=== PATIENT | male | born 1950 | race Caucasian/White ===

== ENCOUNTER 2016-07-17 17:03 | Emergency (ER) | payer MEDICARE, OTHER ==
[~2016-07-17] VITALS: Ht 170.2 cm; Wt 65.0 kg
[~2016-07-17 17:03] MED LIST: ALBU0.63 NEB; ALBU2.5V4 IH; ALPR0.5T11 PO; ALPR0.5T5 PO; ANTIDEPRESSANT; ASPI-860 PO; ATOR80TA PO; BUME1TAB4 PO; CEPH-507 PO; CETI-262 PO; CITA40TA5 PO; CLOP75TA3 PO; CYCL-265 PO; DGX.125T PO; DIAZ5TAB3 PO; DULO60CA7 PO; FENT1PAT9 TOP; FNST5T PO; GABAPENTIN PO; HYDR-3881 PO; INDO50CA PO; ISOS30TA41 PO; LACT10SO46 PO; LISI5TAB14 PO; METH750T3 PO; MIDO2.5T PO; NITR0.4T7 SL; ONDA4TAB11 PO; ONDN4T PO; OXYC1TAB7 PO; OXYC7.5T; PRD10T GT; SIMVASTATIN; SPIR25TA PO; SRTR100T PO; TAMS-8 PO; VARE1TAB21 PO
--- OUTSIDE RECORDS SUMMARY | 2016-07-17 17:07 | XMS REPORT | Summary of Care ---
Author Author Dae العلي, [facility] Unknown Address [address], [place] [id number] Phone Unavailable Care Team Providers Care Inventory Manager Name Role Phone Abbe Valladares M.D. Unavailable Unavailable Saroj Lazo M.D. Unavailable Unavailable Derrick Hurd PP Unavailable MaudDerrick RP Unavailable Unavailable Unavailable Functional Status Functional Status Health Issues Name Dates Details Functional status health issues are not documented Status: Cognitive Status Health Issues Name Dates Details Cognitive status health issues are not documented Status: Problems Name Dates Details Implantable Cardioverter-Defibrillator Status: Active Pulmonary infiltrates on CXR (793.19, R91.8) Status: Active Epistaxis (784.7, R04.0) Status: Active Pulmonary edema (514, J81.1) Status: Active Encounter for monitoring statin therapy (V58.83, Z51.81) Status: Active Pulmonary fibrosis (515, J84.10) Status: Active Coronary artery disease (414.00, I25.10) Status: Active Low back pain potentially associated with radiculopathy (724.2, M54.5) Status: Active Chronic combined systolic and diastolic congestive heart failure (428.42, I50.42) Status: Active Cardiac resynchronization therapy defibrillator (LIMEROCK TOWER LOADER-D) in place (V45.02, Z95.810) Status: Active Dyslipidemia (272.4, E78.5) Status: Active Hypertension (401.9, I10) Status: Active Hypotension (458.9, I95.9) Status: Active S/P CABG (coronary artery bypass graft) (V45.81, Z95.1) Status: Active Abdominal pain (789.00, R10.9) Status: Active Medications Name Dates Details Nitrostat 0.4 MG Sublingual Tablet Sublingual PLACE 1 TABLET UNDER THE TONGUE EVERY 5 MINUTES UP TO 3 DOSES NEEDED FOR CHEST PAIN. Quantity: 15 Refills: 0 Saroj Lazo M.D. Started 10-Dec-2012 ActiveLipitor 80 MG Oral Tablet TAKE 1/2 TABLET DAILY. Refills: 0 Started 14-Dec-2012 ActiveOxycodone-Acetaminophen 7.5-325 MG Oral Tablet TAKE 1 TABLET EVERY 4 TO 6 HOURS NEEDED FOR PAIN. Refills: 0 Started 10-May-2013 ActiveBumetanide 1 MG Oral Tablet TAKE 1 TABLET TWICE DAILY. Refills: 0 Abbe Valladares M.D. Started 28-Jun-2013 ActiveMiraLax Oral Powder MIX 1 CAPFUL IN 8 OUNCES OF WATER AND DRINK TWICE DIRECTED. Quantity: 1 Refills: 0 Started [id number] GM Bottle Benefiber Oral Powder Mix in one scoop in a drink twice a day. Quantity: 1 Refills: 0 Started [id number] GM Bottle Zofran 4 MG Oral Tablet Take one tablet every 4-6 hours as needed for nausea and vomiting Quantity: 10 Refills: 0 Started ActiveAmitriptyline HCl - 25 MG Oral Tablet TAKE 2 TABLETS AT BEDTIME. Refills: 0 Started 05-Sep-2014 ActiveSertraline HCl - 100 MG Oral Tablet TAKE 1 TABLET DAILY DIRECTED. Refills: 0 Started 05-Sep-2014 ActiveOmeprazole Magnesium 20.6 (20 Base) MG Oral Capsule Delayed Release Take one tablet daily Refills: 0 Started 05-Sep-2014 ActiveDULoxetine HCl - 60 MG Oral Capsule Delayed Release Particles TAKE 1 CAPSULE DAILY. Refills: 0 Started 05-Sep-2014 ActiveMidodrine HCl - 10 MG Oral Tablet TAKE 1 TABLET 3 TIMES DAILY. Quantity: 90 Refills: 11 Abbe Valladares M.D. Started 05-Sep-2014 Active Allergies and Adverse Reactions Name Dates Details Streptokinases Status: Active Past Medical History Name Dates Details History of Acute Myocardial Infarction (V12.59) Status: Resolved History of acute respiratory failure (V12.69, Z87.09) Status: Resolved History of chronic bronchitis (V12.69, Z87.09) Status: Resolved History of Hypoxia (799.02, R09.02) Status: Resolved History of nicotine dependence (V15.82, Z87.891) Status: Resolved Procedures Procedure Dates Details History of Cath Stent Placement Completed:13-May-2010 History of Cath Stent Placement Completed:28-May-2010 History of Heart Catheterization - Left Completed:13-May-2010 History of Lower Back Surgery Implantable Cardioverter-Defibrillator History of Venous Ins Electr Vent Pacing At Time Of Insert Cardiovert Completed:29-Jan-2013 History of Cardioverter-defibrillator Pulse Generator Insertion With Leads Completed:29-Jan-2013 Procedures not documented Immunization Name Dates Details Immunizations not documented Family History Brother Name Dates Details Family history of Acute Myocardial Infarction (V17.3) Status: Active Social History Smoking StatusUnknown if ever smoked Vital Signs Date Test Result Details 24-Jun-2015 16:05 BP Systolic 91 mm[Hg] Status: BP Diastolic 62 mm[Hg] Status: Heart Rate 82 /min Status: Height 67 in Status: Weight 154 lb Status: O2 SAT 94 % Status: Body Mass Index Calculated 24.12 kg/m2 Status: Body Surface Area Calculated 1.81 m2 Status: Results Date Description Value Details Results not documented Plan of Care Planned Observations Name Dates Details Planned Goals not documented Goal Planned Encounters Appointment; Provider: Abbe Valladares On 02-Mar-2016 13:30 Appointment; Provider: Brett Tsai On 29-Jan-2013 08:30 Appointment; Provider: Saroj Lazo On 24-Nov-2012 09:00 Appointment; Provider: Timothy Zhang On 28-May-2010 10:00 Appointment; Provider: Timothy Zhang On 14-May-2010 11:15 Instructions Instructions not documented Encounters Appointment; Rio Pearl Encounter Diagnosis: Problem not documented On 24-Jun-2015 15:30 Appointment; Abbe Valladares Encounter Diagnosis: Problem not documented On 06-Mar-2015 11:15 Appointment; Abbe Valladares Encounter Diagnosis: Problem not documented On 05-Sep-2014 09:30 Appointment; Rosalio Adams Encounter Diagnosis: Problem not documented On 07-Aug-2014 14:15 Appointment; Abbe Valladares Encounter Diagnosis: Problem not documented On 07-Mar-2014 10:45 Appointment; Abbe Valladares Encounter Diagnosis: Problem not documented On 15:15 Appointment; Abbe Valladares Encounter Diagnosis: Problem not documented On 14:00 Appointment; Abbe Valladares Encounter Diagnosis: Problem not documented On 06-Sep-2013 09:45 Appointment; Rosalio Adams Encounter Diagnosis: Problem not documented On 08-Aug-2013 13:45 Appointment; Abbe Valladares Encounter Diagnosis: Problem not documented On 28-Jun-2013 09:30
[2016-07-17] MEDS ORDERED: AMIT25TA9 PO (17:34)
[2016-07-17] MEDS ORDERED: POLY17PO6 PO (17:36)
[2016-07-17] MEDS ORDERED: OMEP-114 PO (17:37)
[2016-07-17] MEDS ORDERED: DICY10CA12 PO (17:45)
[2016-07-17] MEDS ORDERED: CLOP75TA28 PO (17:45)
[2016-07-17] MEDS ORDERED: ATOR80TA PO (17:45)
[2016-07-17] MEDS ORDERED: OXYC1TAB8 PO (17:47)
[2016-07-17] MEDS ORDERED: HYOS0.3710 PO (17:47)
[2016-07-17] MEDS ORDERED: ZLP5T PO (17:50)
[2016-07-17] MEDS ORDERED: DNPZ10T PO (17:50)
[2016-07-17] MEDS ORDERED: SODIUM CHLORIDE FLUSH 3 ML SYR IV PRN (18:05)
[2016-07-17] MEDS ORDERED: ALBUTEROL/IPRATROPIUM 3MG-0.5MG/3ML (DUONEB) NEB VIAL INH ONE (18:05)
[2016-07-17] MEDS ORDERED: SODIUM CHLORIDE FLUSH 10 ML SYR IV PRN (18:05)
[2016-07-17 18:21] LABS: BASOPHILS % (AUTO) 1 % (0-2); EOSINOPHILS # (AUTO) 0.2 10^3uL; EOSINOPHILS % (AUTO) 4 % (0-4); LYMPHOCYTES # (AUTO) 2.1 X10^3; MEAN CORPUSCULAR HEMOGLOBIN 28.5 PG (26.0-34.0); MEAN CORPUSCULAR HGB CONC 32.4 g/dL (31.0-37.0); MEAN CORPUSCULAR VOLUME 88 FL (80-100); MEAN PLATELET VOLUME 11.4 FL (6.0-9.5); MONOCYTES # (AUTO) 0.6 X10^3; MONOCYTES % (AUTO) 10 % (3-11); NEUTROPHILS # (AUTO) 3.3 X10^3; NEUTROPHILS % (AUTO) 52 % (51-67); PLATELET COUNT 156 10^3uL (150-450); WHITE BLOOD COUNT 6.36 10^3uL (4.0-11.0)
[2016-07-17 18:33] LABS: ALBUMIN 3.3 g/dL (3.4-5.0); ANION GAP 15.3 MEQ/L (3-15); CALCULATED IONIZED CALCIUM 3.5 mg/dL (3.8-4.6); TOTAL PROTEIN 7.3 g/dL (6.4-8.5)
[2016-07-17] MEDS ORDERED: ONDANSETRON 2 MG/ML (Z0FRAN) 2 ML VIAL IV ONE (18:35)
[2016-07-17] MEDS ORDERED: BUMETANIDE 1 MG/4 ML IV ONE (18:50)
--- NOTE | 2016-07-17 18:58 | Diagnostic Imaging Report ---
INDICATION: Shortness of breath. Portable chest at 6:42 PM FINDINGS: There is a dual-chamber pacemaker. There are postop changes from CABG surgery. There is cardiomegaly with pulmonary vascular congestion and interstitial edema. IMPRESSION: Congestive heart failure with interstitial edema. Dictated by: Dictated on workstation # [id number]
[2016-07-17 19:25] VITALS: BP 97/72
== END 2016-07-17 19:27 | disposition home or self-care (01) ==
LOC: ED 17:04
DX: I50.9 Heart failure, unspecified (principal); G89.29 Other chronic pain; Z87.891 Personal history of nicotine dependence
CPT/HCPCS: 36415; 71010; 80053; 83880; 85025; 86140; 94640; 96374; 96375; 99284; J2405; 99283

== ENCOUNTER 2016-08-16 18:13 | Inpatient (IN) | payer MEDICARE, OTHER ==
[~2016-08-16] VITALS: Ht 170.2 cm; Wt 70.8 kg
[~2016-08-16 18:13] MED LIST changes: +AMIT25TA9 PO; +CLOP75TA28 PO; +DICY10CA12 PO; +DNPZ10T PO; +HYOS0.3710 PO; +OMEP-114 PO; +OXYC1TAB8 PO; +POLY17PO6 PO; +ZLP5T PO
--- NOTE | 2016-08-16 18:42 | NUR ---
PT REPORT GIVEN TO NEXT SHIFT. CL
[2016-08-16] MEDS ORDERED: ALPR.5T PO (18:44)
[2016-08-16] MEDS ORDERED: FURO40TA4 PO (18:44)
[2016-08-16] MEDS ORDERED: CARV3.12T PO (18:44)
[2016-08-16] MEDS ORDERED: LSNP20T PO (18:44)
--- NOTE | 2016-08-16 18:45 | NUR ---
Report received, care assumed. Pt admited to ER after having a fall. Pt reports being dizzy and sliding down the wall. Pt was brought in by [facility] and placed in ER room 4.
[2016-08-16] MEDS ORDERED: SODIUM CHLORIDE 250 ML IV PRN (19:00)
[2016-08-16] MEDS ORDERED: SODIUM CHLORIDE FLUSH 10 ML SYR IV PRN (19:00)
[2016-08-16] MEDS ORDERED: SODIUM CHLORIDE FLUSH 3 ML SYR IV PRN (19:00)
--- NOTE | 2016-08-16 19:00 | Diagnostic Imaging Report ---
PROCEDURE: CT head without contrast. TECHNIQUE: Multiple contiguous axial images were obtained through the brain without the use of intravenous contrast. Indication: Altered mental status. Weakness. Comparison: 09/02/2012. Discussion: Diffuse brain volume loss is again noted, likely age related. Chronic appearing encephalomalacia within the right frontal lobe is likely due to an old infarct. White matter hypoattenuation is nonspecific though not greater than expected for age related chronic small vessel ischemic disease. No acute intracranial hemorrhage, mass, midline shift, or hydrocephalus. The visualized orbits, mastoid air cells, and calvarium are unremarkable. Mild paranasal sinus mucosal thickening. Impression: 1. Senescent changes as described. No acute intracranial abnormality identified. Dictated by: Dictated on workstation # [id number]
[2016-08-16 19:12] LABS: BASOPHILS % (AUTO) 1 % (0-2); EOSINOPHILS # (AUTO) 0.2 10^3uL; EOSINOPHILS % (AUTO) 4 % (0-4); LYMPHOCYTES # (AUTO) 1.2 X10^3; MEAN CORPUSCULAR HEMOGLOBIN 28.1 PG (26.0-34.0); MEAN CORPUSCULAR VOLUME 90 FL (80-100); MEAN PLATELET VOLUME 10.2 FL (6.0-9.5); MONOCYTES # (AUTO) 0.6 X10^3; MONOCYTES % (AUTO) 11 % (3-11); NEUTROPHILS # (AUTO) 3.6 X10^3; NEUTROPHILS % (AUTO) 63 % (51-67); PLATELET COUNT 232 10^3uL (150-450); WHITE BLOOD COUNT 5.68 10^3uL (4.0-11.0)
[2016-08-16 19:14] LABS: MEAN CORPUSCULAR HGB CONC 31.3 g/dL (31.0-37.0)
[2016-08-16] MEDS ORDERED: methylPREDNISolone 125 MG (Solu-MEDROL) VIAL IV ONE (19:30)
[2016-08-16] MEDS ORDERED: BUDESONIDE NEBS 0.5 MG/2ML (PULMICORT) AMP INH ONE (19:30)
[2016-08-16] MEDS ORDERED: ALBUTEROL 0.083% NEB SOLUTION 2.5 MG/3 ML VIAL INH ONE (19:30)
[2016-08-16 19:32] LABS: ALBUMIN 3.1 g/dL (3.4-5.0); ANION GAP 15.4 MEQ/L (3-15); CALCULATED IONIZED CALCIUM 3.8 mg/dL (3.8-4.6); TOTAL PROTEIN 6.9 g/dL (6.4-8.5)
[2016-08-16 19:45] LABS: BILIRUBIN,URINE Negative (Negative); GLUCOSE, URINE (UA) Negative (Negative); LEUKOCYTE ESTERASE ,URINE Negative (Negative); PH,URINE 6.5 (5.0 - 8.0)
[2016-08-16 19:48] LABS: CLARITY,URINE Slightly Cloudy; COLOR,URINE Dark Yellow; URINE CENTRIFUGED VOLUME 12 mL
--- NOTE | 2016-08-16 20:00 | Diagnostic Imaging Report ---
INDICATION: Weakness. TECHNIQUE: Single view chest 7:40 PM. CORRELATION STUDY: 07/17/2016 FINDINGS: The patient is poststernotomy. Left-sided pacemaker is stable. Cardiac enlargement is unchanged. There is presence of pulmonary vascular congestion, perhaps slightly less severe from prior study. Lung zapata are congested but again slightly less severe from prior study. No definitive new infiltrate. A questionable small nodule of the left upper lobe. IMPRESSION: Findings of congestive heart failure and interstitial edema. However, overall findings are slightly less severe from that of one month earlier. Dictated by: Dictated on workstation # [id number]
--- NOTE | 2016-08-16 20:15 | NUR ---
Pt's initial BGM was 50, provided orange juice. Rechecked, was 80. Pt now sitting up on cart eating sandwich and milk. Denies other needs.
--- NOTE | 2016-08-16 20:37 | NUR ---
DR MILLS SPOKE WITH HOSPITALIST DR DUARTE RE ADMIT PT TO BE FULL ADMIT
[2016-08-16] MEDS ORDERED: ONDANSETRON 2 MG/ML (Z0FRAN) 2 ML VIAL IV PRN (20:50)
[2016-08-16] MEDS ORDERED: DEXTROSE 50% 25 GM/50 ML SYRINGE IV PRN ×2 (20:50)
[2016-08-16] MEDS ORDERED: ACETAMINOPHEN 325 MG TAB (TYLENOL) PO PRN (20:50)
[2016-08-16] MEDS ORDERED: oxycODONE/ACETAMINOPHEN 10MG-325 MG (PERCOCET-10) TABLET PO PRN (20:50)
[2016-08-16] MEDS ORDERED: GLUCAGON EMERGENCY 1 MG/KIT IM PRN ×2 (20:50)
[2016-08-16] MEDS ORDERED: DEXTROSE ORAL GEL (GLUTOSE 40%) 15 GM TUBE PO PRN ×2 (20:50)
[2016-08-16] MEDS ORDERED: ALBUTEROL 0.083% NEB SOLUTION 2.5 MG/3 ML VIAL INH PRN (20:50)
--- NOTE | 2016-08-16 21:12 | NUR ---
Pt admitted to Med/Surg Rm 303. Taken by wheelchair upstairs by WANDA Foley. Report given to WANDA King at 210.
--- NOTE | 2016-08-16 21:20 | NUR ---
Pt arrives to room 318 via wheelchair, accompanied by family and Pat design supervisor. Alert and oriented x 4, Blood sugar is 159, is currently wearing oxygen at 4LPM via NC to keep SpO2 above 90%. Denies pain or needs at this time, call light is in reach, will continue to monitor.
[2016-08-16 21:23] VITALS: BP 93/65
[2016-08-16 21:25] VITALS: BP 93/65
[2016-08-16] MEDS ORDERED: ATORVASTATIN 40 MG (LIPITOR) TABLET PO SCH (22:05)
[2016-08-16] MEDS: ALBUTEROL/IPRATROPIUM 3MG-0.5MG/3ML (DUONEB) NEB VIAL INH SCH (22:12)
[2016-08-16 22:24] VITALS: BP 93/65
--- NOTE | 2016-08-16 22:41 | History and Physical (E) ---
History & Physical Chief complaint: Syncope. History of present illness: This is a 66-year-old white male with a known history of ischemic cardiomyopathy. The patient does have an AICD in place. The patient describes intermittent episodes of syncope. These episodes typically occur with activity. The patient was recently hospitalized I believe it [facility] for exacerbation of CHF. The patient was discharged on aggressive diuretic therapy. The patient got up to go to the restroom this afternoon. The patient had onset of lightheadedness and thought he was going to pass out again. The patient sat down and had loss of consciousness that lasted 10 minutes. The patient apparently has episodes similar to this not infrequent. Apparently, he does not notify family members for these occur. Today the patients heard this event and this precipitated his presentation to the emergency department. In the emergency department, the patients workup was reassuring. The patient was mildly hypertensive. The patient was mildly orthostatic. Cardiac evaluation was reassuring. The patients EKG is paced. Initial troponin was 0.02. The patient is feeling better. Some interest patients blood sugar was 55. This is never happened before, patients never been told he has sugar problems. At this time the patients to be admitted for further assessment of syncopal episode with hypoglycemia. His further workup noting the patients oxygen was 84% on room air. Apparently, the patient has qualify for oxygen therapy in the past. He has lost his qualification. Now he has been requalified. Apparently there is been some difficulty getting oxygen delivered to his home. It is not clear what amount of oxygen hes been certified for. Past medical history: CHF, COPD, mild Alzheimers type dementia, anxiety, TIA, coronary artery disease Past surgical history: AICD placement, stents and angioplasty, unknown lumbar back surgery Social history: Retired, , stopped smoking 2012, occasional alcohol, was a fitter machinist, no service Family history: Unknown Medications: Albuterol, Xanax, Elavil, Bumex, Coreg, Plavix, Bentyl, Aricept, Lasix, , lisinopril, [place], Ambien, simvastatin, omeprazole Allergies: See medication reconciliation Review of systems: Patient is alert and able to provide reasonable information, no headache, no recent change in vision, no fever chills or sweats, no sore throat, no neck pain or jaw pain, mild shortness of breath to moderate shortness of breath chronically, patient recently has been seen by pulmonary, theyre not convinced the patient has COPD, workup ongoing, was scheduled for a clinic visit this week , patient denies cough, denies PND or orthopnea, denies abdominal pain, no nausea and vomiting, patient has intermittent episodes of constipation and diarrhea, patient denies any focal neurological complaints, has edema to legs which is chronic, a 12 point review systems is otherwise negative except for described above Physical examination: Vital signs sats are 84% room air, afebrile, respiratory rate 16, pulse 78, blood pressure 93/65 Well-developed well-nourished alert white male mild confusion in mild distress Sclera without icterus, extraocular muscles are intact Neck with easy range of motion Lungs are diminished without wheezes Heart is regular rate and rhythm I do not hear murmur Abdomen is soft nursing personnel without tenderness Extremities with 2 mm pitting edema bilaterally Neurologic no focal deficits Lab: White count 5.6, hemoglobin 12.1, platelet counts 230,000, INR 1.4, sodium 141, potassium 3.7, BP 120, creatinine 1.2, glucose is 55, troponin 0.02, urinalysis is negative, EKG is paced Chest x-ray consistent with mild congestive heart failure CT head without acute disease process Impression/plan 1. Syncope acute present on admission: This is related to hypotension, mild orthostatic, and aggressive diuresis, patient will be given gentle hydration overnight, will hold KATIA inhibitor, hold diuretics, well continue beta avery , make further recommendations based on response to therapy, it is appreciated that every effort was made to improve patients ejection fraction. At this time though without treatment is causing him more symptoms that it is helping it would appear. Well ask that the patients AICD interrogated tomorrow to exclude arrhythmia, 2. Hypoxic respiratory failure acute present on admission: Most likely related to lung disease, DuoNeb, albuterol, oxygen to titrate for sats are 91% only, patient apparently has been approved for oxygen therapy, theyve been unable to get the [place] to home, this will need to be addressed prior to discharge, there is no evidence to suggest pulmonary embolus, 3. Congestive heart failure chronic present on admission: Presyncope ischemic, at this time directly to be held, gentle hydration as noted above, further assessment in the morning 4. COPD chronic present on admission: As noted above there is some question of patient truly has COPD, well treat as such overnight, ER did give a dose of steroids, this would not be continued, DuoNeb, albuterol when necessary, reassess 5. Hyperglycemia acute present on admission: Not clear why patients hyperglycemic at this time, surgical assistant certified with this, at this time will check sugars every hour, hypoglycemic protocol, as well as possible patient and apparently took some medications precipitating hypoglycemia, we will monitor carefully 6. Alzheimers type dementia chronic present on admission: Continue Aricept, 7. Coronary disease chronic present on admission: At this time patients troponins 0.02, admit to telemetry, rule patient out as a precaution, continue beta avery, aspirin, Plavix, 8. Hypertension chronic present on admission: As noted above patients blood pressure is actually low. Well continue beta avery, but hold diuretics and KATIA inhibitor 9. Gastroesophageal reflux disease chronic present on admission: Continue proton pump inhibitor 10. Dyslipidemia chronic present on admission: Continue statin 11. DVT prophylaxis: SCD Allergies/Home Medications Allergies: Coded Allergies: Streptokinase (Verified Allergy, Unknown, 12/13/13) Reported Home Medications Scheduled Albuterol Sulfate (Albuterol Sulfate) 2.5 MG IH PRN (Reported) Amitriptyline HCl (Amitriptyline HCl) 50 MG PO HS (Reported) Atorvastatin (Lipitor) 80 MG PO DAILY (Reported) Atorvastatin (Lipitor) 80 MG PO DAILY (Reported) Bumetanide (Bumetanide) 1 MG PO BID (Reported) Carvedilol (Carvedilol) 3.125 MG PO BID (Reported) Clopidogrel Bisulfate (Clopidogrel) 75 MG PO DAILY (Reported) Donepezil HCl (Donepezil HCl) 10 MG PO DAILY (Reported) Furosemide (Furosemide) 120 MG PO BID (Reported) Lisinopril (Lisinopril) 20 MG PO DAILY (Reported) Omeprazole Magnesium (Omeprazole Magnesium) 20 MG PO DAILY (Reported) Polyethylene Glycol 3350 (Miralax) 17 GM PO DAILY (Reported) Zolpidem Tartrate (Zolpidem Tartrate) 5 MG PO HS (Reported) Scheduled PRN Alprazolam (Alprazolam) 0.5 MG PO NEEDED PRN PRN ANXIETY (Reported) Dicyclomine HCl (Dicyclomine HCl) 10 MG PO TID PRN PRN PAIN (Reported) Hyoscyamine Sulfate (Hyoscyamine Sulfate) 0.375 MG PO BID PRN PRN PAIN (Reported ) Ondansetron (Ondansetron ODT) 4 MG PO Q4H PRN PRN NAUSEA/VOMITING (Reported) Oxycodone HCl/Acetaminophen (Oxycodone-Acetaminophen 10-325) 1 EACH PO QID PRN PRN PAIN (Reported) Miscellaneous Medications Nitroglycerin (Nitroglycerin) 0.4 MG SL (Reported) Copies to: End of Report . ZOË DUARTE MD August 16, 2016 22:41
[2016-08-17 00:12] VITALS: BP 82/57
[2016-08-17] MEDS ORDERED: ALPRAZolam 0.25 MG (XANAX) TAB PO PRN (03:05)
[2016-08-17 03:51] VITALS: BP 89/64
--- NOTE | 2016-08-17 04:40 | NUR ---
Pt has been sleeping off and on tonight, has had a good appetite, denies pain or discomfort at this time. Will continue to monitor.
[2016-08-17] MEDS: ALBUTEROL/IPRATROPIUM 3MG-0.5MG/3ML (DUONEB) NEB VIAL INH SCH ×2 (05:08→12:02)
[2016-08-17 06:09] LABS: MEAN CORPUSCULAR HEMOGLOBIN 27.8 PG (26.0-34.0); MEAN CORPUSCULAR VOLUME 88 FL (80-100); MEAN PLATELET VOLUME 10.4 FL (6.0-9.5); PLATELET COUNT 223 10^3uL (150-450); WHITE BLOOD COUNT 3.94 10^3uL (4.0-11.0)
[2016-08-17 06:46] LABS: MEAN CORPUSCULAR HGB CONC 31.5 g/dL (31.0-37.0)
[2016-08-17 06:49] LABS: ANION GAP 15.4 MEQ/L (3-15); CALCULATED IONIZED CALCIUM 3.8 mg/dL (3.8-4.6); TOTAL PROTEIN 6.7 g/dL (6.4-8.5)
[2016-08-17] MEDS ORDERED: PANTOPRAZOLE 40 MG (PROTONIX) TAB PO SCH (07:00)
[2016-08-17 07:37] LABS: EOSINOPHILS % 0 % (0-4); MONOCYTES % 0 % (3-11); RBC MORPH NORMAL (NORMAL); SEGMENTED NEUTROPHILS % 87 % (51-67)
[2016-08-17 07:39] LABS: BAND NEUTROPHILS % 5 % (0-6); LYMPHOCYTES # 0.3 #; TOTAL CELLS COUNTED 100
--- NOTE | 2016-08-17 07:49 | NUR ---
Pt resting in bed, 1+ pitting edema BLE. Remains on 4L nc. BP low 80s systolic- will notify Dr. Ariza and cont to monitor patient. Calls appropriately for assist.
[2016-08-17 08:00] VITALS: BP 83/52
[2016-08-17] MEDS ORDERED: CARVEDILOL 3.125 MG (COREG) TABLET PO SCH (08:00)
--- NOTE | 2016-08-17 08:30 | NUR ---
Marcos Valdez APRN notified of low BP- no new orders.
[2016-08-17] MEDS ORDERED: POLYETHYLENE GLYCOL 17 GM (MIRALAX) PACKET PO SCH (09:00)
[2016-08-17] MEDS: DONEPEZIL 10 MG (ARICEPT) TAB PO SCH ×3 (09:08→10:55)
[2016-08-17] MEDS: CLOPIDOGREL 75 MG (PLAVIX) TAB PO SCH ×3 (09:08→10:55)
--- NOTE | 2016-08-17 09:37 | NUR ---
NUTRITION ASSESSMENT Level 1 Patient: Curtis Velez Age/Sex: 66/M Date Screened: 08-17-16 Weight: 155.7#/70.8 kg Height: 67 inches Primary Diagnosis: syncope, CHF Diet Order: cardiac Relevant labs: glucose 192 Food allergies: N Nutrition Assessment Criteria Age over 80: N Body Mass Index (BMI) under 19: N Admission Screening Indicates Risk? 6 points Moderate/High Risk Diagnosis: 3 points TPN or PPN: N NPO or clear liquid diet: N Serum Glucose <70 or >180: 3 points Hgb A1c >6.7: N/A Total: 12 points Risk Screen: __ Patient at low nutritional risk based on available data; reevaluate in 5-7 days __ Patient at moderate nutritional risk based on available data; reevaluate in 3-5 days _X_ Patient at high nutritional risk; complete Nutrition Assessment within 48 hours of admission.
[2016-08-17 10:17] VITALS: BP 83/52
[2016-08-17 12:00] VITALS: BP 86/54
--- NOTE | 2016-08-17 12:28 | NUR ---
O2 sat's 97% in bed on room air, 93% on room air after bathroom trip. Ambulated pt. 300ft on room air sat's dropped to 88% at 200ft. Ambulated pt. 300ft on 2L nc, O2 sat's stayed 90-93% during walk, and increased to 96% at rest on room air. BS are clear, no cough.
--- NOTE | 2016-08-17 13:13 | Progress Note (E) ---
Progress Note S: Awake and alert - daughter here in room, he has noted pitting edema. He is wanting to go home. He is to see Dr Carrera and does follow with Dr Valladares his transmission worker AICD interrogated- nothing to report no arrythmias seen O: I & O Past 24 hrs 08/17/16 07:00 Intake Total 1569 ml Output Total 900 ml Balance 669 ml Intake Oral 1569 ml Output Urine Total 900 ml vitals: Vital Signs Date Time Temp Pulse Resp B/P Pulse Ox O2 Delivery O2 Flow Rate FiO2 08/17/16 12:00 98.2 82 22 86/54 100 Room air 08/17/16 00:08 2.5 Physical examination: Well-developed well-nourished alert Sclera without icterus, extraocular muscles are intact Neck with easy range of motion Lungs are diminished without wheezes Heart is S1S2 with murmur Abdomen is soft nursing personnel without tenderness Extremities with 2 mm pitting edema bilaterally Scrotal edema noted Neurologic no focal deficits CBC BMP Last 24 Hrs 08/16/16 17:45 08/17/16 05:50 Laboratory Results Past 24 Hrs 08/16/16 17:45: Alanine Aminotransferase (ALT/SGPT) 26, Albumin 3.1, Albumin/Globulin Ratio 0.815, Alkaline Phosphatase 192, Anion Gap 15.4, Aspartate Amino Transf (AST/ SGOT) 25, BUN/Creatinine Ratio 17, Basophils # (Auto) 0.1, Basophils (%) (Auto) 1, Blood Urea Nitrogen 20, Calcium Level 8.6, Calcium/Ionized Calcium Ratio 3.8 , Calculated Osmolality 273, Carbon Dioxide Level 29, Chloride Level 101, Creatine Kinase MB 1.8, Creatinine 1.17, Eosinophils # (Auto) 0.2, Eosinophils ( %) (Auto) 4, Estimat Glomerular Filtration Rate 75.5, Estimated GFR (Non- 62.4, Glucose Level 55, Hematocrit 38.70, Hemoglobin 12.1, Lymphocytes # (Auto) 1.2, Lymphocytes (%) (Auto) 21, Mean Corpuscular Hemoglobin 28.1, Mean Corpuscular Hemoglobin Concent 31.3, Mean Corpuscular Volume 90, Mean Platelet Volume 10.2, Monocytes # (Auto) 0.6, Monocytes (%) ( Auto) 11, Neutrophils # (Auto) 3.6, Neutrophils (%) (Auto) 63, Platelet Count 232, Potassium Level 3.7, Red Blood Count 4.31, Red Cell Distribution Width 19.3 , Sodium Level 141, Total Bilirubin 1.4, Total Creatine Kinase 63, Total Protein 6.9, Troponin I 0.025, White Blood Count 5.68 08/16/16 19:00: Urine Bacteria Rare, Urine Bilirubin Negative, Urine Blood Trace-intact, Urine Clarity Slightly cloudy, Urine Collection Type Clean catch, Urine Color Dark yellow, Urine Glucose (UA) Negative, Urine Ketones Negative, Urine Leukocyte Esterase Negative, Urine Microscopic RBC 2-5, Urine Mucus 1+, Urine Nitrite Negative, Urine Protein Negative, Urine Renal Epithelial Cells 2-5, Urine Specific [place] 1.020, Urine Squamous Epithelial Cells 2-5, Urine Urobilinogen 1.0, Urine WBC 2-5, Urine pH 6.5, Volume Urine Centrifuged 12 ml 08/16/16 19:26: Activated Partial Thromboplast Time 31.3, Prothromb Time International Ratio 1.4 , Prothrombin Time 15.7 08/17/16 02:45: Troponin I 0.018 08/17/16 05:50: Absolute Band Neutrophils 0.2, Alanine Aminotransferase (ALT/SGPT) 25, Albumin 3.0, Albumin/Globulin Ratio 0.810, Alkaline Phosphatase 178, Anion Gap 15.4, Aspartate Amino Transf (AST/SGOT) 25, BUN/Creatinine Ratio 19, Band Neutrophils % 5, Basophils # (Auto) , Basophils # (Manual) 0.0, Basophils % (Manual) 0, Basophils (%) (Auto) , Blood Morphology Comment Normal, Blood Urea Nitrogen 22, Calcium Level 8.4, Calcium/Ionized Calcium Ratio 3.8, Calculated Osmolality 273 , Carbon Dioxide Level 24, Chloride Level 102, Creatinine 1.16, Differential Total Cells Counted 100, Eosinophils # 0.0, Eosinophils # (Auto) , Eosinophils % (Manual) 0, Eosinophils (%) (Auto) , Estimat Glomerular Filtration Rate 76.2, Estimated GFR (Non- 63.0, Glucose Level 192, Hematocrit 36.80, Hemoglobin 11.6, Lymphocytes # 0.3, Lymphocytes # (Auto) , Lymphocytes % (Manual ) 8, Lymphocytes (%) (Auto) , Mean Corpuscular Hemoglobin 27.8, Mean Corpuscular Hemoglobin Concent 31.5, Mean Corpuscular Volume 88, Mean Platelet Volume 10.4, Metamyelocytes % 0, Monocytes # 0.0, Monocytes # (Auto) , Monocytes % (Manual) 0, Monocytes (%) (Auto) , Neutrophils # 3.4, Neutrophils # (Auto) , Neutrophils (%) (Auto) , Platelet Count 223, Potassium Level 3.8, Red Blood Count 4.17, Red Cell Distribution Width 18.7, Segmented Neutrophils % 87, Sodium Level 137, Total Bilirubin 1.5, Total Protein 6.7, White Blood Count 3.94 08/17/16 08:50: Troponin I 0.013 EKG is paced Chest x-ray consistent with mild congestive heart failure CT head without acute disease process Impression/plan 1. Syncope acute present on admission: This is related to hypotension, mild orthostatic, and aggressive diuresis, patient will be given gentle hydration overnight, will hold KATIA inhibitor, hold diuretics, well continue beta avery , make further recommendations based on response to therapy, it is appreciated that every effort was made to improve patients ejection fraction. At this time though without treatment is causing him more symptoms that it is helping it would appear. AICD interrogated - its ok per tech. 2. Hypoxic respiratory failure acute present on admission: Most likely related to lung disease, DuoNeb, albuterol, oxygen to titrate for sats are 91% only, patient apparently has been approved for oxygen therapy, theyve been unable to get the [place] to home, this will need to be addressed prior to discharge, there is no evidence to suggest pulmonary embolus, 3. Congestive heart failure chronic present on admission: Presyncope ischemic, at this time directly to be held,morning 4. COPD chronic present on admission: As noted above there is some question of patient truly has COPD, well treat as such overnight, ER did give a dose of steroids, this would not be continued, DuoNeb, albuterol when necessary, reassess 5. Hyperglycemia acute present on admission: Not clear why patients hyperglycemic at this time, hypoglycemic protocol, as well as possible patient and apparently took some medications precipitating hypoglycemia, we will monitor carefully 6. Alzheimers type dementia chronic present on admission: Continue Aricept, 7. Coronary disease chronic present on admission: At this time patients troponins 0.02, admit to telemetry, rule patient out as a precaution, continue beta avery, aspirin, Plavix, 8. Hypertension chronic present on admission: As noted above patients blood pressure is actually low. Well continue beta avery, but hold diuretics and KATIA inhibitor 9. Gastroesophageal reflux disease chronic present on admission: Continue proton pump inhibitor 10. Dyslipidemia chronic present on admission: Continue statin 11. DVT prophylaxis: SCD Long talk with pt and his . Pt adamant to go home. " I hate this place I want to be at home with oxygen and be comfortable and there" states they need help. Discussed [facility] hospice and they want to visit with them. I have spoken to Nani and she will visit with them. Pt states Im tired and I want to go home! ADDENDUM------ Nani with [facility] visited pt and he has been accepted for home hospice . He refuses to stay another night to get Hospice set up and demands to leave. Left AMA-papers signed. Dr Juwan Hurd notified. Hospice will set up at home tomorrow. Expressed concerns of him leaving- he would not stay and taking him home Pt seen and examined before leaving AMA. He expressed the desire to go home and said he gets violent at night if he has to stay in the hospital. Talked with his daughter outside the room and she had questions about end of life care. She shared that Dr. Hurd and Dr. Valladares have both expressed to them that there's not much more that can be done for his heart. Explained that if this is truly the case, they may want to consider Hospice. She said they would think about it and maybe talk about it with Dr. Hurd at a previously scheduled appt next week. Danna Yan APRN August 17, 2016 13:13 Kenrick Ariza MD August 17, 2016 21:05
[2016-08-17] MEDS ORDERED: FUROSEMIDE 40 MG (LASIX) TAB PO ONE (13:25)
--- NOTE | 2016-08-17 13:27 | NUR ---
NUTRITION ASSESSMENT Level II Patient: Curtis Velez Age/Sex: 66/M Date Assessed: 08-17-16 ASSESSMENT Pertinent History: Patient admitted with syncope and CHF, and screened at high nutritional risk secondary to diagnosis and weight loss, with blood sugars ranging from 55-192 in previously undiagnosed diabetic. PMHx includes CHF, possible COPD, mild Alzheimer's type dementia, anxiety, TIA and CAD. He was recently hospitalized with CHF at [facility]. He lives at home with his . Weight history includes 166# in 2013 and 143# on 07-17-16. Meds/Nutrition: Miralax, Protonix Weight: 155.7#/70.8 kg Height: 67 inches Body Mass Index (BMI): 24.4 [place] Body Weight : 148#/67.2 kg % IBW: 105% GASTROINTESTINAL Appetite: fair, eating 50% Diet Order: cardiac Unintentional loss of >10 lbs. in 3 months: N Difficult to chew/swallow: N Diabetes: not diagnosed Relevant Labs: glucose 192 (55 on admit) Calculations for Nutritional Assessment Estimated calorie needs: 25-28 kcals/kg = 1,750-1,960 kcals Estimated protein needs: 1.0-1.3 g/kg = 70-91 g./day DIAGNOSIS 1. Nutrition Diagnosis: Altered nutrition-related lab values (glucose) related to endocrine dysfunction vs. medication as evidenced by blood glucose 55-192 since admission without diagnosis of diabetes. NUTRITIONAL INTERVENTION Goal: Patient will receive adequate nutrition to meet his needs. Plan: Recommend we get a Hgb A1c to better assess blood sugar in the past few months. Noted physician report that hypoglycemia may be secondary to meds--newly diagnosed diabetes would also be a consideration. Will monitor intake for adequacy and follow with physician re: plan of care. MONITORING & EVALUATION _X_ Monitor patients menu selections _X_ Monitor patients food intake per nursing notes __ Monitor NPO/clear liquid days _X_ Monitor lab values __ Monitor I&O __ Other
[2016-08-17] MEDS ORDERED: IPRA3AMP11 INH (13:34)
[2016-08-17] MEDS ORDERED: ALBU8.5H2 INH (13:34)
--- NOTE | 2016-08-17 14:16 | NUR ---
MED REC COMPLETED-current med list obtained from Ext Med History application, PCP listing, and retail pharmacy.
--- NOTE | 2016-08-17 14:44 | NUR ---
Pt. told nurse practitioner Danna he wanted to leave. He just wanted to go home and . [facility] Hospice worker, Nani, happened to be at the hospital and visited with Pt. and his . Pt. does qualify for hospice but hospice would not be able to get Pt. admitted until tomorrow. JORGE ALBERTO and Nurse Nicole visited with Pt. about staying. Pt. reported he just wants to go home; he said he didn't get any sleep. SW asked what we could do to make improve things and Pt. didn't provide an answer he just said he wants to go home and he understands the legality of leaving. JORGE ALBERTO asked him to give the nurse a chance to have him sign AMA paperwork and take out his IV. He agreed to do so. JORGE ALBERTO contacted Dr. Juwan Hurd office to let them know Pt. is leaving and [facility] will be contacting them for orders.
--- NOTE | 2016-08-17 14:51 | NUR ---
Pt left AMA at this time via ambulation with . Signed AMA paperwork. 18g IV was removed by this nurse from LFA- Tip intact, site without redness/swelling. Pt dresses indep. States "I hope you guys can understand it is nothing you guys have done wrong, you guys have taken good care of me, but i just want to sleep in my own bed and do what I want when I want." Pt was pleasant and thankful. He verbalizes understanding that [facility] will come to his house tomorrow to admit him to Hospice services at his request.
--- NOTE | 2016-08-17 15:01 | Discharge Summary (E FT) ---
Discharge Summary (E FT) Admit Date August 16, 2016 at 20:40 Discharge Date August 17, 2016 1500 AMA Admitting Provider Lars Zhao MD Primary Care Provider Derrick Hurd MD Attending Provider Lars Zhao MD Consulting Provider Hospital Course Summary Pt admitted via tele med When he was seen he was angry and wants to go home to - refused to stay in hospital- long talk about options and they want hospice- Nani from [facility] came and hes accepted- they asked him to stay til tomorrow so everything can be set up at home- he refused and left AMA- PCP notified. Nani will see him tomorrow at his home to enroll him in Hospice. Vital Signs Date Time Temp Pulse Resp B/P Pulse Ox O2 Delivery O2 Flow Rate FiO2 08/17/16 14:32 86 08/17/16 12:00 98.2 22 86/54 100 Room air 08/17/16 00:08 2.5 Physical examination: Well-developed well-nourished alert Sclera without icterus, extraocular muscles are intact Neck with easy range of motion Lungs are diminished without wheezes Heart is S1S2 with murmur Abdomen is soft nursing personnel without tenderness Extremities with 2 mm pitting edema bilaterally Scrotal edema noted Neurologic no focal deficits CBC BMP Last 24 Hrs 08/16/16 17:45 08/17/16 05:50 Laboratory Results Past 24 Hrs 08/16/16 17:45: Alanine Aminotransferase (ALT/SGPT) 26, Albumin 3.1, Albumin/Globulin Ratio 0.815, Alkaline Phosphatase 192, Anion Gap 15.4, Aspartate Amino Transf (AST/ SGOT) 25, BUN/Creatinine Ratio 17, Basophils # (Auto) 0.1, Basophils (%) (Auto) 1, Blood Urea Nitrogen 20, Calcium Level 8.6, Calcium/Ionized Calcium Ratio 3.8 , Calculated Osmolality 273, Carbon Dioxide Level 29, Chloride Level 101, Creatine Kinase MB 1.8, Creatinine 1.17, Eosinophils # (Auto) 0.2, Eosinophils ( %) (Auto) 4, Estimat Glomerular Filtration Rate 75.5, Estimated GFR (Non- 62.4, Glucose Level 55, Hematocrit 38.70, Hemoglobin 12.1, Lymphocytes # (Auto) 1.2, Lymphocytes (%) (Auto) 21, Mean Corpuscular Hemoglobin 28.1, Mean Corpuscular Hemoglobin Concent 31.3, Mean Corpuscular Volume 90, Mean Platelet Volume 10.2, Monocytes # (Auto) 0.6, Monocytes (%) ( Auto) 11, Neutrophils # (Auto) 3.6, Neutrophils (%) (Auto) 63, Platelet Count 232, Potassium Level 3.7, Red Blood Count 4.31, Red Cell Distribution Width 19.3 , Sodium Level 141, Total Bilirubin 1.4, Total Creatine Kinase 63, Total Protein 6.9, Troponin I 0.025, White Blood Count 5.68 08/16/16 19:00: Urine Bacteria Rare, Urine Bilirubin Negative, Urine Blood Trace-intact, Urine Clarity Slightly cloudy, Urine Collection Type Clean catch, Urine Color Dark yellow, Urine Glucose (UA) Negative, Urine Ketones Negative, Urine Leukocyte Esterase Negative, Urine Microscopic RBC 2-5, Urine Mucus 1+, Urine Nitrite Negative, Urine Protein Negative, Urine Renal Epithelial Cells 2-5, Urine Specific [place] 1.020, Urine Squamous Epithelial Cells 2-5, Urine Urobilinogen 1.0, Urine WBC 2-5, Urine pH 6.5, Volume Urine Centrifuged 12 ml 08/16/16 19:26: Activated Partial Thromboplast Time 31.3, Prothromb Time International Ratio 1.4 , Prothrombin Time 15.7 08/17/16 02:45: Troponin I 0.018 08/17/16 05:50: Absolute Band Neutrophils 0.2, Alanine Aminotransferase (ALT/SGPT) 25, Albumin 3.0, Albumin/Globulin Ratio 0.810, Alkaline Phosphatase 178, Anion Gap 15.4, Aspartate Amino Transf (AST/SGOT) 25, BUN/Creatinine Ratio 19, Band Neutrophils % 5, Basophils # (Auto) , Basophils # (Manual) 0.0, Basophils % (Manual) 0, Basophils (%) (Auto) , Blood Morphology Comment Normal, Blood Urea Nitrogen 22, Calcium Level 8.4, Calcium/Ionized Calcium Ratio 3.8, Calculated Osmolality 273 , Carbon Dioxide Level 24, Chloride Level 102, Creatinine 1.16, Differential Total Cells Counted 100, Eosinophils # 0.0, Eosinophils # (Auto) , Eosinophils % (Manual) 0, Eosinophils (%) (Auto) , Estimat Glomerular Filtration Rate 76.2, Estimated GFR (Non- 63.0, Glucose Level 192, Hematocrit 36.80, Hemoglobin 11.6, Lymphocytes # 0.3, Lymphocytes # (Auto) , Lymphocytes % (Manual ) 8, Lymphocytes (%) (Auto) , Mean Corpuscular Hemoglobin 27.8, Mean Corpuscular Hemoglobin Concent 31.5, Mean Corpuscular Volume 88, Mean Platelet Volume 10.4, Metamyelocytes % 0, Monocytes # 0.0, Monocytes # (Auto) , Monocytes % (Manual) 0, Monocytes (%) (Auto) , Neutrophils # 3.4, Neutrophils # (Auto) , Neutrophils (%) (Auto) , Platelet Count 223, Potassium Level 3.8, Red Blood Count 4.17, Red Cell Distribution Width 18.7, Segmented Neutrophils % 87, Sodium Level 137, Total Bilirubin 1.5, Total Protein 6.7, White Blood Count 3.94 08/17/16 08:50: Troponin I 0.013 EKG is paced Chest x-ray consistent with mild congestive heart failure CT head without acute disease process Impression/plan 1. Syncope acute present on admission: This is related to hypotension, mild orthostatic, and aggressive diuresis, patient will be given gentle hydration overnight, will hold KATIA inhibitor, hold diuretics, well continue beta avery , make further recommendations based on response to therapy, it is appreciated that every effort was made to improve patients ejection fraction. At this time though without treatment is causing him more symptoms that it is helping it would appear. AICD interrogated - its ok per tech. 2. Hypoxic respiratory failure acute present on admission: Most likely related to lung disease, DuoNeb, albuterol, oxygen to titrate for sats are 91% only, patient apparently has been approved for oxygen therapy, theyve been unable to get the [place] to home, this will need to be addressed prior to discharge, there is no evidence to suggest pulmonary embolus, 3. End stage Ischemic Congestive heart failure chronic present on admission: Presyncope ischemic, at this time directly to be held,morning 4. COPD chronic present on admission: As noted above there is some question of patient truly has COPD, well treat as such overnight, ER did give a dose of steroids, this would not be continued, DuoNeb, albuterol when necessary, reassess 5. Hyperglycemia acute present on admission: Not clear why patients hyperglycemic at this time, hypoglycemic protocol, as well as possible patient and apparently took some medications precipitating hypoglycemia, we will monitor carefully 6. Alzheimers type dementia chronic present on admission: Continue Aricept, 7. Coronary disease chronic present on admission: At this time patients troponins 0.02, admit to telemetry, rule patient out as a precaution, continue beta avery, aspirin, Plavix, 8. Hypertension chronic present on admission: As noted above patients blood pressure is actually low. Well continue beta avery, but hold diuretics and KATIA inhibitor 9. Gastroesophageal reflux disease chronic present on admission: Continue proton pump inhibitor 10. Dyslipidemia chronic present on admission: Continue statin 11. DVT prophylaxis: SCD Long talk with pt and his . Pt adamant to go home. " I hate this place I want to be at home with oxygen and be comfortable and there" states they need help. Discussed [facility] hospice and they want to visit with them. I have spoken to Nani and she will visit with them. Pt states Im tired and I want to go home! ADDENDUM------ Nani with [facility] visited pt and he has been accepted for home hospice . He refuses to stay another night to get Hospice set up and demands to leave. Left AMA-papers signed. Dr Juwan Hurd notified. Hospice will set up at home tomorrow. Expressed concerns of him leaving- he would not stay and taking him home Discharge Disposition AMA to home with home hospice Continued Medications: Albuterol Sulfate (Proair HFA) 8.5 Gm Hfa.aer.ad 1-2 PUFF INH Q4H PRN DYSPNEA Albuterol/Ipratropium (Duoneb 3mg-0.5mg/3ml) 3 Ml Nebu 3 ML INH QID Copd Ref 0 VIAL Alprazolam (Alprazolam) 0.5 Mg Tablet 0.5-1 MG PO Q6H PRN ANXIETY TAB Amitriptyline HCl (Amitriptyline HCl) 25 Mg Tablet 50 MG PO HS TAB Carvedilol (Carvedilol) 3.125 Mg Tablet 3.125 MG PO BID WITH MEALS TAB Furosemide (Furosemide) 40 Mg Tablet 120 MG PO BID TAB Lisinopril (Lisinopril) 20 Mg Tablet 20 MG PO DAILY TAB Omeprazole Magnesium (Omeprazole Magnesium) 20 Mg Capsule.dr 20 MG PO DAILY CAP Ondansetron (Ondansetron ODT) 4 Mg Tab.rapdis 4 MG PO Q4H PRN NAUSEA/VOMITING Oxycodone HCl/Acetaminophen (Oxycodone-Acetaminophen 10-325) 1 Each Tablet 1 EACH PO QID PRN PAIN TAB Polyethylene Glycol 3350 (Miralax) 17 Gm Powd.pack 17 GM PO DAILY Constipation Ref 0 PKT Zolpidem Tartrate (Zolpidem Tartrate) 5 Mg Tablet 5 MG PO HS TAB Copies to: End of Report . Danna Valdez APRN August 17, 2016 15:01 Kenrick Ariza MD August 17, 2016 21:14
== END 2016-08-17 14:50 | disposition left against medical advice (07) | DRG 189 ==
LOC: ED 18:14 → MED/SURG 20:40
PROVIDERS: ADMIT Emergency Medicine; ATTEND Emergency Medicine
DX: J96.01 Acute respiratory failure with hypoxia (principal); I95.2 Hypotension due to drugs; I25.5 Ischemic cardiomyopathy; I11.0 Hypertensive heart disease with heart failure; I50.9 Heart failure, unspecified; I25.10 Atherosclerotic heart disease of native coronary artery without angina pectoris; J44.9 Chronic obstructive pulmonary disease, unspecified; G30.9 Alzheimer's disease, unspecified; F02.80 Dementia in other diseases classified elsewhere, unspecified severity, without behavioral disturbance, psychotic disturbance, mood disturbance, and anxiety; T50.2X5A Adverse effect of carbonic-anhydrase inhibitors, benzothiadiazides and other diuretics, initial encounter; Z95.810 Presence of automatic (implantable) cardiac defibrillator; Z95.5 Presence of coronary angioplasty implant and graft; Z86.73 Personal history of transient ischemic attack (TIA), and cerebral infarction without residual deficits; Z87.891 Personal history of nicotine dependence
CPT/HCPCS: 36415; 70450; 71010; 80053; 81003; 81015; 82550; 82553; 83880; 84484; 85025; 85610; 85730; 93005; 93010; 94620; 94640; 96374; 99285